=== PATIENT | female | born 1960 | race African-American/Black ===

== ENCOUNTER → 2016-07-16 | Outpatient (CLI) | payer OTHER ==
--- NOTE | ~2016-07-16 | MY6 ---
[facility] A Service of [facility] & [facility] RADIOLOGY TEXT RESULTS PATIENT: ENRIKE KATZ LOCATION: [facility] : 60 UNIT #: [id number] AGE: [address]: HUSSEIN GONZALES MD SEX: F ORDER DR: [id number] [facility] [address] [place], [place] [address] [id number] O MR#: [id number] #: [id number] NAME: ENRIKE KATZ : 1960 SEX: F STUDY DATE/TIME: 07/16/2016 12:47 UNIT: [facility] ROOM: STUDY DESCRIPTION: MY Mammogram Dx Dig Kalin Attending Physician: Hussein Gonzales M.D. Referring Physician: Hussein Gonzales M.D. Ordering Physician: Hussein Gonzales M.D. Primary Care Physician: Hussein Gonzales M.D. MEDICAL IMAGING REPORT This report is preliminary unless electronic signature is present EXAM Bilateral digital diagnostic mammogram. COMPARISON Baseline screening mammogram dated June 28, 2016. INDICATIONS 56-year-old female with 3 clusters of right breast microcalcifications and 1 or possibly 2 clusters of left breast microcalcifications. Additional imaging evaluation was recommended. TECHNIQUE Spot magnification CC and ML views of the right breast were performed in addition to full field ML view and tangential view of the right breast. Spot magnification CC and spot magnification LM views of the left breast were obtained in addition to full field LM view. FINDINGS There is a cluster of microcalcifications in the 8 o'clock posterior third of the left breast, which is better seen on spot magnification LM view than on spot magnification CC view. These are faint and appear to be tram-tracking suggesting association with an artery and likely representing benign vascular calcifications. Similarly there is a cluster of microcalcifications in the 7 o'clock posterior third of the left breast near the inframammary fold, which has similar configuration on both CC and LM views, possibly dermal in nature although these cannot be proven definitively to be dermal. These also appear to tram-track and could represent benign vascular microcalcifications. The right 12 o'clock microcalcifications with lucent centers in the posterior third are confirmed to be dermal on tangential view. A separate grouping of microcalcifications is noted to localize to the 11 o'clock STS. [facility] A Service of [facility] RADIOLOGY TEXT RESULTS PATIENT: ENRIKE KATZ LOCATION: [facility] : 60 UNIT #: [id number] AGE: [address]: HUSSEIN GONZALES MD SEX: F ORDER DR: posterior third of the right breast and does not meet criteria for a cluster. Adjacent to this in the 11 o'clock posterior third of the right breast, there are tram-tracking microcalcifications, which appear to be associated with a blood vessel favoring benign arterial calcifications. These are somewhat loosely grouped and, therefore, followup imaging is recommended. IMPRESSION 1. There are 2 clusters of microcalcifications within the left breast as described above, which are favored to be vascular in nature. These are probably benign findings for which bilateral diagnostic mammography is recommended in 6 months to document stability. 2. The only persistent finding of any concern in the right breast is a cluster of probably benign, probable vascular microcalcifications. 6-month follow bilateral diagnostic mammography is recommended to document stability. Findings and recommendations were discussed with the patient upon of termination today's exam. Patients over the age of 40 are entered into a reminder system with target due date for the next mammogram. A result letter will also be sent to the patient. BIRADS: 3 Probably benign finding; short interval followup suggested. Dictated by... Aime Doll M.D. THIS IS AN ELECTRONICALLY VERIFIED REPORT Aime Doll M.D. at 07/17/2016 12:43 PM Rakan TD: 07/17/2016 07:35 JOB #: [id number] MEDICAL IMAGING REPORT COPY
== END | disposition home or self-care (01) ==
LOC: CMAM 12:06
DX: R92.8 Other abnormal and inconclusive findings on diagnostic imaging of breast (principal); R92.0 Mammographic microcalcification found on diagnostic imaging of breast
CPT/HCPCS: G0204